=== PATIENT | female | born 1960 | race African-American/Black ===

== ENCOUNTER 2021-01-20 00:01 | Emergency (ER) | payer MEDICAID, SELFPAY ==
[~2021-01-20] VITALS: Ht 160 cm; Wt 65.0 kg
[2021-01-20 00:03] VITALS: BP 109/73
[2021-01-20] MEDS ORDERED: LIDOCAINE-MPF 1%, 5ML ONE (00:09)
[2021-01-20] MEDS ORDERED: TRANEXAMIC ACID 100 MG/ML, 10ML ONE (00:09)
[2021-01-20] MEDS ORDERED: PHENYLEPHRINE NASAL 1%, 15ML SPRAY ONE (00:09)
[2021-01-20] MEDS ORDERED: TRANEXAMIC ACID 100 MG/ML, 10ML TP ONE (00:30)
[2021-01-20] MEDS ORDERED: PHENYLEPHRINE NASAL 1%, 15ML SPRAY NAS ONE (00:30)
[2021-01-20] MEDS ORDERED: SILVER NITRATE STICK TP ONE (00:41)
--- NOTE | 2021-01-20 00:45 | NUR ---
AT BEDSIDE FOR DRAFTSPERSON
--- NOTE | 2021-01-20 01:06 | NUR ---
PT UP TO RESTROOM STEADY GAIT NADN
--- NOTE | 2021-01-20 02:26 | NUR ---
Patient/Caregiver given discharge instructions and they have confirmed that they understand the instructions. Patient ambulatory with steady gait. NAD, all questions answered appropriately, denies additional needs at this time. No personal belongings left in room after discharge.
== END 2021-01-20 02:27 | disposition home or self-care (01) ==
LOC: ED 00:09
DX: R04.0 Epistaxis (principal); F17.200 Nicotine dependence, unspecified, uncomplicated
CPT/HCPCS: 30901; 99284

== ENCOUNTER 2021-01-21 07:26 | Emergency (ER) | payer MEDICAID ==
[~2021-01-21] VITALS: Ht 160 cm; Wt 58.0 kg
[2021-01-21] MEDS ORDERED: TRANEXAMIC ACID 100 MG/ML, 10ML ONE (07:34)
[2021-01-21] MEDS ORDERED: TRANEXAMIC ACID 100 MG/ML, 10ML TP ONE (08:00)
--- NOTE | 2021-01-21 09:00 | NUR ---
ATTEMPT TO DISCHARGE PT, PT'S NOSE STILL BLEEDING, ERP NOTIFIED.
--- NOTE | 2021-01-21 09:17 | NUR ---
PT STILL BLEEDING FROM R NARE. ERP ATTEMPT TO PLACE MORE AIR INTO RHINOROCKET. PT REFUSING, STATING TOO MUCH PRESSURE IN R NARE AND FACE.
--- NOTE | 2021-01-21 10:18 | NUR ---
BLEEDING CONTROLLED, PT DISCHARGED HOME WITH REFERRAL TO ENT.
[2021-01-21 10:19] VITALS: BP 121/64
== END 2021-01-21 10:21 | disposition home or self-care (01) ==
LOC: ED 08:01
DX: R04.0 Epistaxis (principal); R00.0 Tachycardia, unspecified
CPT/HCPCS: 30901; 99284

== ENCOUNTER 2021-01-21 15:07 | Emergency (ER) | payer MEDICAID ==
[~2021-01-21] VITALS: Ht 160 cm; Wt 60.0 kg
[2021-01-21 15:10] VITALS: BP 121/73
[2021-01-21] MEDS ORDERED: OXYMETAZOLINE NASAL SPRAY 0.05%,30ML ONE (15:56)
== END 2021-01-21 16:15 | disposition left against medical advice (07) ==
LOC: ED 16:09
DX: R04.0 Epistaxis (principal)
CPT/HCPCS: 99283

== ENCOUNTER 2021-01-25 06:37 | Emergency (ER) | payer MEDICAID ==
[~2021-01-25] VITALS: Ht 160 cm; Wt 55.6 kg
[2021-01-25 06:40] VITALS: BP 117/71
== END 2021-01-25 07:14 | disposition home or self-care (01) ==
LOC: ED 06:55
DX: R04.0 Epistaxis (principal)
CPT/HCPCS: 99281